=== PATIENT | male | born 1970 | race African-American/Black ===

== ENCOUNTER 2020-12-26 05:55 | Observation (INO) ==
[2020-12-26] MEDS ORDERED: LACTATED RINGERS 1,000 ML IV SCH (06:30)
[2020-12-26] MEDS ORDERED: BUPIVACAINE MPF 0.25% 30 ML VIAL ONE ×2 (06:39→12:42)
[2020-12-26] MEDS ORDERED: LIDOCAINE 1% 20 ML VIAL ONE ×2 (06:39→12:43)
[2020-12-26] MEDS ORDERED: SEVOFLURANE 1 UNIT/15 MINUTE INH ONE ×2 (06:53→09:39)
[2020-12-26] MEDS ORDERED: DEXAMETHASONE 4 MG/1 ML VIAL ONE (06:53)
[2020-12-26] MEDS ORDERED: LIDOCAINE 2% 5 ML VIAL ONE ×2 (06:53→12:42)
[2020-12-26] MEDS ORDERED: KETOROLAC 30 MG/1 ML VIAL ONE (06:53)
[2020-12-26] MEDS ORDERED: ACETAMINOPHEN 1,000 MG/100 ML VIAL IV ONE (06:53)
[2020-12-26] MEDS ORDERED: propofoL 200 MG/20 ML VIAL IV ONE ×2 (06:53→10:35)
[2020-12-26] MEDS ORDERED: fentaNYL 100 MCG/2 ML VIAL ONE ×3 (06:53→09:24)
[2020-12-26] MEDS ORDERED: ONDANSETRON 4 MG/2 ML VIAL ONE (06:53)
[2020-12-26] MEDS ORDERED: MIDAZOLAM 2 MG/2 ML VIAL ONE ×4 (06:54→12:47)
[2020-12-26 07:10] LABS: Basophils % 0.2 % (0.0-0.8); Eosinophils # 0.2 10*3/uL (0.0-0.87); Eosinophils % 1.7 % (0.00-10.9); Hematocrit 40.7 VOL% (42.0-52.0); Hemoglobin 13.9 GM/DL (14.0-18.0); Immature Granulocytes % 0.4 %; Immature Granulocytes Absolute 0.04 #; Lymphocytes # 1.9 10*3/uL (1.4-4.0); Lymphocytes % 18.9 % (21.2-54.2); Mean Corpuscular HGB Conc 34.2 GM/DL (32-36); Mean Corpuscular Volume 90.8 FL (87-102); Mean Platelet Volume 8.8 FL (9.6-12.0); Monocytes % 5.8 % (1.7-12.7); Platelet Count 399 T/CUMM (130-400); Red Blood Count 4.48 MC/CUMM (3.8-5.5); Red Cell Distribution Width 12.3 % (9.3-17.3)
[2020-12-26 07:28] LABS: Calcium 8.9 MG/DL (8.5-10.1); Osmolality,Calculated 272.4 MOS/KG (273-304)
[2020-12-26] MEDS ORDERED: ASPIRIN 325 MG TABLET PO STA (08:07)
[2020-12-26] MEDS ORDERED: DIAZEPAM 5 MG TABLET PO ONE (08:14)
[2020-12-26] MEDS ORDERED: diphenhydrAMINE CAP 50 MG CAPSULE PO ONE (08:14)
[2020-12-26] MEDS ORDERED: SODIUM CHLORIDE 0.45% 1,000 ML IV SCH (08:30)
[2020-12-26] MEDS ORDERED: diphenhydrAMINE CAP 25 MG CAPSULE PO ONE (08:30)
[2020-12-26] MEDS ORDERED: diphenhydrAMINE 50 MG/1 ML VIAL ONE (08:39)
[2020-12-26] MEDS ORDERED: TIROFIBAN 5,000 MCG/100 ML PREMIX IV ONE (09:06)
[2020-12-26] MEDS ORDERED: HEPARIN 5,000 UNIT/1 ML VIAL ONE (09:07)
[2020-12-26] MEDS ORDERED: TIROFIBAN 5,000 MCG/100 ML PREMIX IV SCH (09:13)
[2020-12-26] MEDS ORDERED: NITROGLYCERIN DRIP 50 MG/250 ML BOTTLE IV ONE (09:18)
[2020-12-26] MEDS ORDERED: TICAGRELOR 90 MG TABLET ONE (09:23)
[2020-12-26] MEDS ORDERED: HYDROmorphone 2 MG/1 ML VIAL IV PRN (10:04)
[2020-12-26] MEDS ORDERED: NITROGLYCERIN SL 0.4 MG TABLET SL PRN (10:04)
[2020-12-26] MEDS ORDERED: ONDANSETRON 4 MG/2 ML VIAL IV PRN (10:04)
[2020-12-26] MEDS ORDERED: SULFAMETHOX/TRIMETHOPRIM 800-160 MG TABLET PO SCH (10:30)
[2020-12-26] MEDS ORDERED: GLUCAGON 1 MG VIAL IM PRN (11:14)
[2020-12-26] MEDS ORDERED: DEXTROSE 50% 25 GM/50 ML VIAL IV PRN (11:14)
[2020-12-26] MEDS: ceFAZolin 1,000 MG in SYRINGE 1 EACH IV ONE ×2 (12:00→15:14)
[2020-12-26] MEDS: PIPERACILLIN/TAZOBACTAM 3,375 MG in SODIUM CHLORIDE 0.9% 100 ML IV SCH ×2 (15:37→22:23)
[2020-12-26] MEDS: LINEZOLID INJ 600 MG in PREMIX 1 EACH IV SCH (15:52)
[2020-12-26] MEDS: carvediloL 6.25 MG TABLET PO SCH (22:22)
[2020-12-26] MEDS: ATORVASTATIN 40 MG TABLET PO SCH (22:22)
[2020-12-26] MEDS: TICAGRELOR 90 MG TABLET PO SCH (22:22)
[2020-12-26] MEDS: MUPIROCIN 2% OINT 22 GM TUBE TOP SCH (22:22)
[2020-12-27] MEDS: LINEZOLID INJ 600 MG in PREMIX 1 EACH IV SCH ×2 (03:14→14:32)
[2020-12-27 06:08] LABS: Calcium 8.8 MG/DL (8.5-10.1); Osmolality,Calculated 270.5 MOS/KG (273-304); Potassium 4.1 MMOL/L (3.5-5.1)
[2020-12-27] MEDS: PIPERACILLIN/TAZOBACTAM 3,375 MG in SODIUM CHLORIDE 0.9% 100 ML IV SCH ×3 (06:18→22:37)
[2020-12-27 06:27] LABS: Basophils % 0.3 % (0.0-0.8); Eosinophils # 0.3 10*3/uL (0.0-0.87); Hematocrit 37.4 VOL% (42.0-52.0); Hemoglobin 12.9 GM/DL (14.0-18.0); Immature Granulocytes % 0.4 %; Immature Granulocytes Absolute 0.04 #; Lymphocytes # 2.1 10*3/uL (1.4-4.0); Lymphocytes % 21.5 % (21.2-54.2); Mean Corpuscular HGB Conc 34.5 GM/DL (32-36); Mean Corpuscular Volume 89.9 FL (87-102); Mean Platelet Volume 9.2 FL (9.6-12.0); Monocytes % 5.9 % (1.7-12.7); Neutrophils % 68.9 % (38.7-73.9); Platelet Count 359 T/CUMM (130-400); Red Blood Count 4.16 MC/CUMM (3.8-5.5); Red Cell Distribution Width 12.3 % (9.3-17.3); White Blood Count 9.8 T/CUMM (4-12)
[2020-12-27] MEDS ORDERED: ASPIRIN EC 81 MG TABLET PO SCH (09:00)
[2020-12-27] MEDS: APIXABAN 5 MG TABLET PO SCH ×2 (09:13→21:50)
[2020-12-27] MEDS: lisinopriL 10 MG TABLET PO SCH (09:13)
[2020-12-27] MEDS: TICAGRELOR 90 MG TABLET PO SCH ×2 (09:13→21:50)
[2020-12-27] MEDS: INSULIN GLARGINE 100 UNIT/ML SUBCUT SCH (09:13)
[2020-12-27] MEDS: carvediloL 6.25 MG TABLET PO SCH ×2 (09:13→21:51)
[2020-12-27] MEDS: PANTOPRAZOLE 40 MG TABLET PO SCH (09:13)
[2020-12-27] MEDS: MUPIROCIN 2% OINT 22 GM TUBE TOP SCH ×2 (11:14→22:37)
[2020-12-27] MEDS: ATORVASTATIN 40 MG TABLET PO SCH (21:51)
[2020-12-28] MEDS: LINEZOLID INJ 600 MG in PREMIX 1 EACH IV SCH (03:36)
[2020-12-28] MEDS: PIPERACILLIN/TAZOBACTAM 3,375 MG in SODIUM CHLORIDE 0.9% 100 ML IV SCH (05:54)
[2020-12-28 06:25] LABS: Basophils % 0.3 % (0.0-0.8); Eosinophils # 0.2 10*3/uL (0.0-0.87); Eosinophils % 2.3 % (0.00-10.9); Hematocrit 36.8 VOL% (42.0-52.0); Hemoglobin 12.7 GM/DL (14.0-18.0); Immature Granulocytes % 0.6 %; Immature Granulocytes Absolute 0.06 #; Lymphocytes # 2.3 10*3/uL (1.4-4.0); Lymphocytes % 22.6 % (21.2-54.2); Mean Corpuscular HGB Conc 34.5 GM/DL (32-36); Mean Corpuscular Volume 89.8 FL (87-102); Mean Platelet Volume 9.2 FL (9.6-12.0); Monocytes % 5.7 % (1.7-12.7); Neutrophils % 68.5 % (38.7-73.9); Platelet Count 354 T/CUMM (130-400); Red Cell Distribution Width 12.2 % (9.3-17.3); White Blood Count 10.2 T/CUMM (4-12)
[2020-12-28 07:01] LABS: Blood Urea Nitrogen 13 MG/DL (7-18); Calcium 8.8 MG/DL (8.5-10.1); Carbon Dioxide 28 MMOL/L (21-32); Estimated Glom Filtration Rate 119 ML/MIN; Glucose 206 MG/DL (74-106); Osmolality,Calculated 271.4 MOS/KG (273-304); Potassium 4.6 MMOL/L (3.5-5.1); Sodium 133 MMOL/L (136-145)
[2020-12-28 07:05] LABS: Troponin I 0.069 NG/ML (0.00-0.045)
[2020-12-28 08:21] VITALS: BP 118/79
[2020-12-28] MEDS: carvediloL 6.25 MG TABLET PO SCH (09:29)
[2020-12-28] MEDS: TICAGRELOR 90 MG TABLET PO SCH (09:29)
[2020-12-28] MEDS: PANTOPRAZOLE 40 MG TABLET PO SCH (09:29)
[2020-12-28] MEDS: lisinopriL 10 MG TABLET PO SCH (09:29)
[2020-12-28] MEDS: APIXABAN 5 MG TABLET PO SCH (09:29)
[2020-12-28] MEDS: INSULIN GLARGINE 100 UNIT/ML SUBCUT SCH (09:30)
[2020-12-28] MEDS: MUPIROCIN 2% OINT 22 GM TUBE TOP SCH (09:30)
== END 2020-12-28 12:16 | disposition home or self-care (01) ==
LOC: N.OR 05:55 → N.TELES 05:55 → N.SDSINP 06:01 → N.TELES 11:50
PROVIDERS: ADMIT Student in an Organized Health Care Education/Training Program; ATTEND Student in an Organized Health Care Education/Training Program
PROC: CLCCHCL (ICD-10-PCS; 2020-12-26 09:15)